=== PATIENT | male | born 1970 | race Caucasian/White ===

== ENCOUNTER 2021-10-27 08:30 | Day surgery (SDC) | payer BC ==
[2021-10-26 09:05] VITALS: BMI 31.1
[~2021-10-27 08:30] MED LIST: LACTATED RINGERS 1,000 ML IV SCH
[2021-10-27 09:43] VITALS: RESP 16; TEMP 96.5
[2021-10-27] MEDS ORDERED: PROPOFOL 10 MG/ML 20 ML VIAL IV ONE (10:22)
[2021-10-27] MEDS ORDERED: LIDOCAINE 2% INJ 20 MG/ML (2 ML VIAL) ONE (10:22)
--- NOTE | 2021-10-27 10:39 | P.PCN ---
Date of Procedure: 10/27/21 Procedure(s) Performed: BRIEF HISTORY: Patient is a 51-year-old pleasant white male scheduled for an elective colonoscopy as a part of screening for colorectal neoplasia. PROCEDURE PERFORMED: Colonoscopy. PREOPERATIVE DIAGNOSIS: Screening for colon cancer. IV sedation per Anesthesia. PROCEDURE: After informed consent was obtained, the patient, was brought into the endoscopy unit. IV sedation was administered by Anesthesia under continuous monitoring. Digital rectal examination was normal. Initially the Olympus CF-160 flexible video colonoscope was then inserted in the rectum, gradually advanced into the cecum without any difficulty. Careful examination was performed as the scope was gradually being withdrawn. Ileocecal valve and the appendiceal orifice were visualized and appeared normal. Prep was excellent. Mucosa of the cecum, ascending colon, transverse colon, descending colon, sigmoid colon, and rectum appeared normal. Sigmoid diverticulosis Retroflexion was performed in the rectum and no lesions were seen. The patient tolerated the procedure well. IMPRESSION: Normal-appearing colon from rectum to cecum with no evidence Scattered sigmoid diverticulosis. RECOMMENDATIONS: Findings of this examination were discussed with the patient as well as his family. He was advised to have a repeat screening colonoscopy in 10 years..
[2021-10-27 11:17] VITALS: BP 124/86; PULSE 58
== END 2021-10-27 11:30 | disposition home or self-care (01) ==
LOC: ORWHC2ENDO 08:30
PROVIDERS: ATTEND Internal Medicine Gastroenterology
DX: Z12.11 Encounter for screening for malignant neoplasm of colon (principal); K57.30 Diverticulosis of large intestine without perforation or abscess without bleeding; Z79.899 Other long term (current) drug therapy
CPT/HCPCS: 45378; J2704; J2001

== ENCOUNTER 2024-09-09 19:41 | Observation (INO) | payer BC, OTHER ==
[2024-09-09 19:46] LABS: Glucose,Whole Blood 115 mg/dL (70-110)
--- NOTE | 2024-09-09 21:09 | ED ---
Fall HPI - General Chief Complaint: Fall Stated Complaint: Syncope Time Seen by Provider: 09/09/24 20:59 Source: patient, family, EMS, RN notes reviewed Mode of arrival: EMS - History of Present Illness Initial Comments: 54-year-old male presenting for syncopal episode prior to arrival. States he was sitting in his lawn chair this evening when he began to feel lightheaded. He stood up to go inside of the house and had a syncopal episode. reports he was very sweaty. When he came to, he started to feel lightheaded again and syncopized a second time. Does not believe he hit his head. No injuries from the fall. Denies chest pain, shortness of breath, headache, abdominal pain. No significant past medical history. - Related Data Home Medications Medication Instructions Recorded Confirmed Cholecalciferol [Vitamin D3 (125 125 mcg PO DAILY 10/26/21 10/26/21 Mcg = 5000 Iu)] Fish Oil(Dose Unknown) 1 tab PO DAILY 10/26/21 10/26/21 Loratadine-Pseudoeph 10-240 mg 1 tab PO DAILY 10/26/21 10/26/21 [Claritin-D 24 Hour] Multivitamins, Thera [Multivitamin 1 tab PO DAILY 10/26/21 10/26/21 (formulary)] Singulair(Duse Unknown) 1 tab PO DAILY 10/26/21 10/26/21 Allergies Allergy/AdvReac Type Severity Reaction Status Date / Time No Known Allergies Allergy Verified 09/09/24 19:51 Review of Systems ROS Statement: Those systems with pertinent positive or pertinent negative responses have been documented in the HPI. ROS Other: All systems not noted in ROS Statement are negative. Past Medical History Past Medical History: Cancer Additional Past Medical History / Comment(s): seasonal allergies, skin cancer History of Any Multi-Drug Resistant Organisms: None Reported Additional Past Surgical History / Comment(s): cyst removed from rt arm, skin cancer removed from side of nose Past Anesthesia/Blood Transfusion Reactions: No Reported Reaction Past Psychological History: No Psychological Hx Reported Smoking Status: Current some day smoker Past Alcohol Use History: Occasional Past Drug Use History: None Reported - Past Family History Mother Family Medical History: No Reported History General Exam Limitations: no limitations General appearance: alert, in no apparent distress Head exam: Present: atraumatic, normocephalic, normal inspection Eye exam: Present: normal appearance, PERRL, EOMI. Absent: scleral icterus, conjunctival injection, periorbital swelling ENT exam: Present: normal exam, mucous membranes moist Neck exam: Present: normal inspection. Absent: tenderness, meningismus, lymphadenopathy Respiratory exam: Present: normal lung sounds bilaterally. Absent: respiratory distress, wheezes, rales, rhonchi, stridor Cardiovascular Exam: Present: regular rate, normal rhythm, normal heart sounds. Absent: systolic murmur, diastolic murmur, rubs, gallop, clicks GI/Abdominal exam: Present: soft, normal bowel sounds. Absent: distended, tenderness, guarding, rebound, rigid Neurological exam: Present: alert, oriented X3 Psychiatric exam: Present: normal affect, normal mood Skin exam: Present: warm, dry, intact, normal color. Absent: rash Course Vital Signs 09/09/24 09/09/24 19:46 21:45 Temperature 98.0 F Pulse Rate 74 74 Respiratory 17 16 Rate Blood Pressure 116/60 112/76 O2 Sat by Pulse 97 97 Oximetry Medical Decision Making - Medical Decision Making Was pt. sent in by a medical professional or institution (, PA, ST[employer]ER, urgent care, hospital, or retirement...) When possible be specific @ -No Did you speak to anyone other than the patient for history (EMS, parent, family, police, friend...)? What history was obtained from this source @ -No Did you review nursing and triage notes (agree or disagree)? Why? @ -I reviewed and agree with nursing and triage notes Were old charts reviewed (outside hosp., previous admission, EMS record, old EK G, old radiological studies, urgent care reports/EKG's, retirement records)? Report findings @ -No old charts were reviewed Differential Diagnosis (chest pain, altered mental status, abdominal pain women, abdominal pain men, vaginal bleeding, weakness, fever, dyspnea, syncope, headache, dizziness, GI bleed, back pain, seizure, CVA, palpatations, mental health, musculoskeletal)? @ -Differential Syncope: Valvular disease, hypertrophic cardiomyopathy, pulmonary embolism, tamponade, tachycardia, bradycardia, MD, hypovolemia, hemorrhage, dissection, anemia, intracranial hemorrhage, seizure, hypoglycemia, carbon monoxide poisoning, this is not meant to be an all-inclusive list. EKG interpreted by me (3pts min.). @ -As above X-rays interpreted by me (1pt min.). @ -None done CT interpreted by me (1pt min.). @ -None done U/S interpreted by me (1pt. min.). @ -None done What testing was considered but not performed or refused? (CT, X-rays, U/S, labs)? Why? @ -None What meds were considered but not given or refused? Why? @ -None Did you discuss the management of the patient with other professionals (professionals i.e. DrYobany, PA, STONE SANDBLASTER, lab, RT, psych nurse, social service technician, telecommunications clerk, teacher, program officer, case managers)? Give summary @ -I spoke with aissatou who accepts admission for syncope Was smoking cessation discussed for >3mins.? @ -No Was critical care preformed (if so, how long)? @ -No Were there social determinants of health that impacted care today? How? (Homelessness, low income, unemployed, alcoholism, drug addiction, transportation, low edu. Level, literacy, decrease access to med. care, senior care, rehab)? @ -No Was there de-escalation of care discussed even if they declined (Discuss DNR or withdrawal of care, Hospice)? DNR status @ -No What co-morbidities impacted this encounter? (DM, HTN, Smoking, COPD, CAD, Cancer, CVA, ARF, Chemo, Hep., AIDS, mental health diagnosis, sleep apnea, morbid obesity)? @ -None Was patient admitted / discharged? Hospital course, mention meds given and route, prescriptions, significant lab abnormalities, going to OR and other pertinent info. @ - admitted. 54-year-old male presenting for syncope prior to arrival. Denies chest pain, shortness of breath, abdominal pain, headache. Vital signs are within acceptable limits. Physical examination is unremarkable. EKG reveals normal sinus rhythm with inverted T waves in inferior leads. Lab work remarkable for leukocytosis of 18. Troponin undetectable. No lactic acidosis. Patient will be admitted to medicine for syncope. Case was discussed with my ED attending Dr. Anders. Undiagnosed new problem with uncertain prognosis? @ -No Drug Therapy requiring intensive monitoring for toxicity (Heparin, Nitro, Insulin, Cardizem)? @ -No Were any procedures done? @ -No Diagnosis/symptom? @ -Syncope Acute, or Chronic, or Acute on Chronic? @ -Acute Uncomplicated (without systemic symptoms) or Complicated (systemic symptoms)? @ -Complicated Side effects of treatment? @ -No Exacerbation, Progression, or Severe Exacerbation? @ -No Poses a threat to life or bodily function? How? (Chest pain, USA, MD, pneumonia, PE, COPD, DKA, ARF, appy, cholecystitis, CVA, Diverticulitis, Homicidal, Suicid al, threat to staff... and all critical care pts) @ -Possibly - Lab Data Result diagrams: 09/09/24 21:14 09/09/24 21:14 Lab Results 09/09/24 09/09/24 09/09/24 Range/Units 19:44 21:14 21:14 WBC 18.30 H (4.50-10.00) 10*3/uL RBC 4.74 (4.40-5.60) 10*6/uL Hgb 15.0 (13.0-17.0) g/dL Hct 44.2 (39.6-50.0) % MCV 93.2 (80.0-97.0) fL MCH 31.6 (27.0-32.0) pg MCHC 33.9 (32.0-37.0) g/dL Plt Count 238 (140-440) 10*3/uL MPV 10.9 (9.5-12.2) fL Immature Gran % (Auto) 0.5 % Neutrophils % 83.7 % Lymphocytes % 7.5 % Monocytes % 6.7 % Eosinophils % 1.1 % Basophils % 0.5 % Immature Gran # 0.09 H (0.00-0.04) 10*3/uL Neutrophils # 15.29 H (1.80-7.70) 10*3/uL Lymphocytes # 1.38 (0.90-5.00) 10*3/uL Monocytes # 1.23 H (0.20-1.00) 10*3/uL Eosinophils # 0.21 (0.04-0.35) 10*3/uL Basophils # 0.10 (0.00-0.10) 10*3/uL Sodium 139 (137-145) mmol/L Potassium 4.5 (3.5-5.1) mmol/L Chloride 108 H (98-107) mmol/L Carbon Dioxide 23 (22-30) mmol/L Anion Gap 8 mmol/L BUN 17 (9-20) mg/dL Creatinine 0.83 (0.66-1.25) mg/dL Est GFR (CKD-EPI)AfAm >90 (>60 ml/min/1.73 sqM) Est GFR (CKD-EPI)NonAf >90 (>60 ml/min/1.73 sqM) Glucose 113 H (74-99) mg/dL POC Glucose (mg/dL) 115 H (70-110) mg/dL POC Glu [employer] ID [facility] Plasma Lactic Acid Jeff (0.7-2.0) mmol/L Calcium 8.7 (8.4-10.2) mg/dL Total Bilirubin 0.5 (0.2-1.3) mg/dL AST 33 (17-59) U/L ALT 28 (4-49) U/L Alkaline Phosphatase 104 (38-126) U/L Troponin I (0.000-0.034) ng/mL Total Protein 6.7 (6.3-8.2) g/dL Albumin 4.0 (3.5-5.0) g/dL 09/09/24 09/09/24 Range/Units 21:14 21:14 WBC (4.50-10.00) 10*3/uL RBC (4.40-5.60) 10*6/uL Hgb (13.0-17.0) g/dL Hct (39.6-50.0) % MCV (80.0-97.0) fL MCH (27.0-32.0) pg MCHC (32.0-37.0) g/dL Plt Count (140-440) 10*3/uL MPV (9.5-12.2) fL Immature Gran % (Auto) % Neutrophils % % Lymphocytes % % Monocytes % % Eosinophils % % Basophils % % Immature Gran # (0.00-0.04) 10*3/uL Neutrophils # (1.80-7.70) 10*3/uL Lymphocytes # (0.90-5.00) 10*3/uL Monocytes # (0.20-1.00) 10*3/uL Eosinophils # (0.04-0.35) 10*3/uL Basophils # (0.00-0.10) 10*3/uL Sodium (137-145) mmol/L Potassium (3.5-5.1) mmol/L Chloride (98-107) mmol/L Carbon Dioxide (22-30) mmol/L Anion Gap mmol/L BUN (9-20) mg/dL Creatinine (0.66-1.25) mg/dL Est GFR (CKD-EPI)AfAm (>60 ml/min/1.73 sqM) Est GFR (CKD-EPI)NonAf (>60 ml/min/1.73 sqM) Glucose (74-99) mg/dL POC Glucose (mg/dL) (70-110) mg/dL POC Glu [employer] ID Plasma Lactic Acid Jeff 1.2 (0.7-2.0) mmol/L Calcium (8.4-10.2) mg/dL Total Bilirubin (0.2-1.3) mg/dL AST (17-59) U/L ALT (4-49) U/L Alkaline Phosphatase (38-126) U/L Troponin I <0.012 (0.000-0.034) ng/mL Total Protein (6.3-8.2) g/dL Albumin (3.5-5.0) g/dL - EKG Data -: EKG Interpreted by Me EKG Comments: EKG reveals normal sinus rhythm with inverted T waves in inferior leads. Ventricular rate 66 bpm, parable 157, QRS duration 96, QT/QTc 383/397 Disposition Clinical Impression: Syncope Disposition: ADMITTED IP TO THIS HOSP Referrals: Lucio Hutchinson DO [Primary Care Provider] - 1-2 days Time of Disposition: 22:42
[2024-09-09 21:28] LABS: Basophils # (A) 0.10 10*3/uL (0.00-0.10); Basophils % (A) 0.5 %; Eosinophils # (A) 0.21 10*3/uL (0.04-0.35); Eosinophils % (A) 1.1 %; HCT 44.2 % (39.6-50.0); HGB 15.0 g/dL (13.0-17.0); Lymphocytes # (A) 1.38 10*3/uL (0.90-5.00); Lymphocytes % (A) 7.5 %; MCH 31.6 pg (27.0-32.0); MCHC 33.9 g/dL (32.0-37.0); MCV 93.2 fL (80.0-97.0); Monocytes # (A) 1.23 10*3/uL (0.20-1.00); Monocytes % (A) 6.7 %; Neutrophils # (A) 15.29 10*3/uL (1.80-7.70); Neutrophils % (A) 83.7 %; Platelet Count 238 10*3/uL (140-440); RBC 4.74 10*6/uL (4.40-5.60); RDW 12.5 % (11.5-14.5); WBC 18.30 10*3/uL (4.50-10.00)
[2024-09-09 21:41] LABS: ALT 28 U/L (4-49); AST 33 U/L (17-59); African American GFR (CKD) >90 (>60 ml/min/1.73 sqM); Albumin 4.0 g/dL (3.5-5.0); Alkaline Phosphatase 104 U/L (38-126); Anion Gap 8 mmol/L; Blood Urea Nitrogen 17 mg/dL (9-20); Calcium 8.7 mg/dL (8.4-10.2); Carbon Dioxide 23 mmol/L (22-30); Chloride 108 mmol/L (98-107); Glucose 113 mg/dL (74-99); Non-African American GFR(CKD) >90 (>60 ml/min/1.73 sqM); Potassium 4.5 mmol/L (3.5-5.1); Sodium 139 mmol/L (137-145); Total Protein 6.7 g/dL (6.3-8.2)
[2024-09-09] MEDS: SODIUM CHLORIDE 0.9% 1,000 ML IV STA (21:44)
[2024-09-09] MEDS ORDERED: ONDANSETRON 4 MG/2 ML VIAL IVP PRN (23:11)
[2024-09-09] MEDS ORDERED: NALOXONE 0.4 MG/ML 1 ML VIAL IV PRN (23:11)
[2024-09-09] MEDS ORDERED: ACETAMINOPHEN TAB 325 MG TAB PO PRN (23:11)
[2024-09-09 23:36] LABS: INR 0.9 (<1.2); Partial Thromboplastin Time 22.6 sec (22.0-30.0); Prothrombin Time 10.2 sec (10.0-12.5)
[2024-09-10 01:10] VITALS: TEMP 97.7
--- NOTE | 2024-09-10 03:31 | P.HPIM ---
History of Present Illness H&P Date: 09/09/24 Chief Complaint: Patient reports passing out twice yesterday afternoon 54 year old male with no significant past medical history Patient experienced two episodes of syncope yesterday afternoon. The first episode occurred after patient had eaten and got up from a chair outside. Patient felt lightheaded and passed out and fell to the ground. Patient had consumed a beer approximately 30 minutes prior and had just finished smoking a cigar. Patient's called 911. Patient regained consciousness and initially felt fine, though described feeling somewhat cloudy mentally. A second episode occurred within 3 minutes, during which patient was unresponsive for a longer period. EMS arrived and patient walked to the ambulance. EKG was performed showing "some anomalies" but nothing significant. Patient experienced another episode of lightheadedness while with EMS, prompting transport to the hospital. Patient denies heart racing, skipping beats, bleeding, recent travel, blood clots, or heart disease. Patient denies any seizure activity, loss of bladder or bowel control, or shaking/convulsing during the episodes. denies any new focal neuro deficits Patient reports no medical issues or medical history. Patient smokes 1-2 cigars daily, typically [employer]. Patient consumed a beer at lunch and another beer later in the day. Patient denies street drug use. Review of systems All systems reviewed with pertinent positive negatives as per HPI ENT: Patient reports ears feeling plugged upon waking for the last couple of days, attributed to wax buildup. Denies vision or hearing changes otherwise. Neurological: Denies numbness or new weakness. Patient reports normal strength. Cardiovascular: Denies heart racing or skipping beats. Gastrointestinal: Denies bleeding. Musculoskeletal: Denies leg swelling. on exam Constitutional: No acute distress, conversant, pleasant Eyes: Anicteric sclerae, moist conjunctiva, Pupils equal round reactive to light ENMT: NC/AT Oropharynx clear, no erythema, or exudates Neck: Supple, no masses, or JVD No carotid bruits No thyromegaly Lungs: Clear to auscultation Clear to percussion Normal respiratory effort, no accessory muscle use Cardiovascular: Heart regular in rate and rhythm, No murmurs, gallops, or rubs No peripheral edema Abdominal: Soft Nontender, no guarding, rebound or rigidity Abdomen moving with respiration Extremities: No digital cyanosis No clubbing Pedal pulses intact and symmetrical Radial pulses intact and symmetrical No calf tenderness Psychiatric: Alert and oriented to person, place and time Appropriate affect fair judgement Neuro Muscles Strength 5/5 in all 4 extremities Sensation to light touch grossly present throughout Cranial nerves II-XII grossly intact Past Medical History Past Medical History: Cancer Additional Past Medical History / Comment(s): seasonal allergies, skin cancer History of Any Multi-Drug Resistant Organisms: None Reported Additional Past Surgical History / Comment(s): cyst removed from rt arm, skin cancer removed from side of nose Past Anesthesia/Blood Transfusion Reactions: No Reported Reaction Past Psychological History: No Psychological Hx Reported Smoking Status: Current some day smoker Past Alcohol Use History: Occasional Past Drug Use History: None Reported - Past Family History Mother Family Medical History: No Reported History Medications and Allergies Home Medications Medication Instructions Recorded Confirmed Type Cholecalciferol [Vitamin D3 (125 125 mcg PO DAILY 10/26/21 10/26/21 History Mcg = 5000 Iu)] Fish Oil(Dose Unknown) 1 tab PO DAILY 10/26/21 10/26/21 History Loratadine-Pseudoeph 10-240 mg 1 tab PO DAILY 10/26/21 10/26/21 History [Claritin-D 24 Hour] Multivitamins, Thera [Multivitamin 1 tab PO DAILY 10/26/21 10/26/21 History (formulary)] Singulair(Duse Unknown) 1 tab PO DAILY 10/26/21 10/26/21 History Allergies Allergy/AdvReac Type Severity Reaction Status Date / Time No Known Allergies Allergy Verified 09/09/24 19:51 Physical Exam Vitals: Vital Signs Temp Pulse Resp BP Pulse Ox 09/10/24 01:10 97.7 F 57 L 17 108/62 96 09/09/24 21:45 74 16 112/76 97 09/09/24 19:46 98.0 F 74 17 116/60 97 Intake and Output 09/09/24 09/09/24 09/10/24 14:59 22:59 06:59 Other: Weight 106.594 kg Results CBC & Chem 7: 09/09/24 21:14 09/09/24 21:14 Labs: Abnormal Lab Results - Last 24 Hours (Table) 09/09/24 09/09/24 09/09/24 Range/Units 19:44 21:14 21:14 WBC 18.30 H (4.50-10.00) 10*3/uL Immature Gran # 0.09 H (0.00-0.04) 10*3/uL Neutrophils # 15.29 H (1.80-7.70) 10*3/uL Monocytes # 1.23 H (0.20-1.00) 10*3/uL Chloride 108 H (98-107) mmol/L Glucose 113 H (74-99) mg/dL POC Glucose (mg/dL) 115 H (70-110) mg/dL Assessment and Plan Assessment: Patient presents with syncope of unclear etiology requiring rule out of cardiac and neurologic causes. Two episodes of loss of consciousness occurred yesterday afternoon, with the second episode being more prolonged. Patient had no prior history of similar episodes and reports no significant medical history. syncope suspected to be secondary to dehydration , resulting in orthostatic hypotension when getting off a chair check orthostatic vitals IVF hydration with normal saline neuro check s director of cardiac rehabilitation re evaluate after IVF hydration EKG no acute ST changes Blood work review Hemoglobin 15 unremarkable D-dimer unremarkable 0.17 INR 0.9 unremarkable Renal function unremarkable sodium 139 potassium 4.5 bicarb 23 BUN 17 creatinine 0.8 blood sugar 113 Lactic acid 1.2 Liver enzymes unremarkable Troponins negative Full code DVT prophylaxis low risk patient will be maintained on SCDs
[2024-09-10] MEDS: SODIUM CHLORIDE 0.9% 1,000 ML IV SCH (05:21)
[2024-09-10 07:50] LABS: Basophils # (A) 0.06 10*3/uL (0.00-0.10); Basophils % (A) 0.5 %; Eosinophils # (A) 0.22 10*3/uL (0.04-0.35); Eosinophils % (A) 1.7 %; HCT 42.4 % (39.6-50.0); HGB 14.3 g/dL (13.0-17.0); Lymphocytes # (A) 1.64 10*3/uL (0.90-5.00); Lymphocytes % (A) 13.0 %; MCH 30.8 pg (27.0-32.0); MCHC 33.7 g/dL (32.0-37.0); MCV 91.4 fL (80.0-97.0); Monocytes # (A) 1.13 10*3/uL (0.20-1.00); Monocytes % (A) 9.0 %; Neutrophils # (A) 9.51 10*3/uL (1.80-7.70); Neutrophils % (A) 75.3 %; Platelet Count 214 10*3/uL (140-440); RBC 4.64 10*6/uL (4.40-5.60); RDW 12.8 % (11.5-14.5); WBC 12.62 10*3/uL (4.50-10.00)
[2024-09-10 08:12] LABS: African American GFR (CKD) >90 (>60 ml/min/1.73 sqM); Anion Gap 6 mmol/L; Blood Urea Nitrogen 12 mg/dL (9-20); Calcium 8.9 mg/dL (8.4-10.2); Carbon Dioxide 25 mmol/L (22-30); Chloride 110 mmol/L (98-107); Glucose 94 mg/dL (74-99); Magnesium 1.8 mg/dL (1.6-2.3); Non-African American GFR(CKD) >90 (>60 ml/min/1.73 sqM); Potassium 4.2 mmol/L (3.5-5.1); Sodium 141 mmol/L (137-145)
--- NOTE | 2024-09-10 08:27 | US ---
EXAMINATION TYPE: US carotid duplex BILAT DATE OF EXAM: 09/10/2024 COMPARISON: NONE CLINICAL INDICATION: Male, 54 years old with history of syncope; TECHNIQUE: Grayscale, color Doppler and spectral Doppler evaluation of the bilateral carotid systems and vertebral arteries. Indirect Doppler criteria was utilized. FINDINGS: Certified Nuclear Medicine Technologist notes: Exam done portable EXAM MEASUREMENTS: RIGHT: Peak Systolic Velocity (PSV) cm/sec ----- Right CCA: 79.8 ----- Right ICA: 82.0 ----- Right ECA: 115.7 ICA/CCA ratio: 1.0 RIGHT: End Diastole cm/sec ----- Right CCA: 21.5 ----- Right ICA: 34.7 ----- Right ECA: 13.9 LEFT: Peak Systolic Velocity (PSV) cm/sec ----- Left CCA: 92.7 ----- Left ICA: 82.3 ----- Left ECA: 106.9 ICA/CCA ratio: 0.9 LEFT: End Diastole cm/sec ----- Left CCA: 22.8 ----- Left ICA: 34.4 ----- Left ECA: 12.4 VERTEBRALS (direction of flow): Right Vertebral: Antegrade Left Vertebral: Antegrade Rhythm: Normal IMPRESSION: No hemodynamically significant internal carotid artery stenosis on either side. Criteria for Assigning % of Stenosis / Diameter reduction (Estimation based on the indirect measurements of the internal carotid artery velocities (ICA PSV). 1. Normal (no stenosis)=ICA PSV < 180 cm/s: ratio < 2.0: ICA EDV<40 cm/s. 2. Less than 50% stenosis=ICA PSV < 180 cm/s: ratio < 2.0: ICA EDV<40 cm/s. 3. 50 to 69% stenosis=ICA PSV of 180 to 230 cm/s: ration 2.0 ? 4.0: ICA EDV 40-100 cm/s. PSV 125-180 cm/sec and ICA/CCA PSV Ratio ? 2.0 is also consistent with 50-69% stenosis 4. Greater than 70% stenosis to near occlusion= ICA PSV > 230 cm/s: ratio > 4.0: ICA EDV > 100 cm/s. 5. Near occlusion= ICA PSV velocities may be low or undetectable: variable ratio and ICA EDV. 6. Total occlusion=unable to detect flow. [facility], , 09/10/2024 8:24 AM
[2024-09-10 08:50] VITALS: BP 107/71; PULSE 64; RESP 18
--- NOTE | 2024-09-10 11:31 | P.DS ---
Providers Date of admission: 09/09/24 23:12 Expected date of discharge: 09/10/24 Attending physician: Joe Teague MD Primary care physician: [facility] Course: Discharge Diagnosis: Syncope Hospital Course: The patient is a 54 year old male with no significant past medical history who experienced two episodes of syncope yesterday afternoon. Patient denies taking any medications at home as well as any history of previous syncope. Patient also denies any headache, changes in vision, or current lightheadedness or dizziness. In the ED, labs were drawn which were unremarkable except for an elevated WBC of 18.30. EKG was unremarkable and did not show any evidence of arrhythmia. The patient was started on IV fluids The patient was admitted and orthostatic vitals were evaluated which showed no evidence of orthostasis. A carotid duplex ultrasound was performed which showed no evidence of carotid artery stenosis bilaterally. Labs were redrawn the day after admission which were also unremarkable, WBC: 12.62, NA: 131, K: 4.2, Ca: 8.9, M.8 Patient seen and examined at bedside. Vital signs reviewed and stable. Physical examination: Vital signs reviewed General: non toxic, no distress, appears at stated age, normal weight Derm: no unusual rashes/lesions, warm Head: atraumatic, normocephalic, symmetric Eyes: EOMI, anicteric sclera, pupils equal round reactive to light ENT: Nose and ears atraumatic Neck: No cervical lymphadenopathy, trachea midline, supple Mouth: no lip lesion, mucus membranes moist Cardiovascular: S1S2 reg, no murmur, positive dorsalis pedis pulse bilateral, no edema Lungs: CTA bilateral, no rhonchi, no rales, no accessory muscle use Abdominal: soft, nontender to palpation, no guarding Ext: muscle strength 5 out of 5 in all 4 extremities grossly, no gross muscle atrophy Neuro: CN II-XI grossly intact, no gross focal neuro deficits Psych: Alert, oriented to person, place, and time The patient's syncope is likely due to dehydration while he was working outside Patient was recommended to follow-up with PCP within 1 week. The patient was also counseled to stay hydrated when he is working outside. He was also encouraged to drink Pedialyte. A total of greater than 30 minutes of time were spent preparing this complex discharge summary. Patient was discharged on 09/10/2024. Tanvir Villalba MD PGY-1 TY Dictation was produced using [employer] dictation software. please excuse any grammatical, word or spelling errors. I saw and evaluated the patient during the torres and critical portions of this encounter, and discussed the case in detail with the resident author of this note, I agree with the Assessment and Plan, and my changes, if any, are highlighted in blue. Plan - Discharge Summary New Discharge Prescriptions: Continue Montelukast [Singulair] 10 mg PO HS PRN PRN Reason: Allergy Symptoms Loratadine [Claritin] 10 mg PO DAILY Discharge Medication List Loratadine [Claritin] 10 mg PO DAILY 09/10/24 [History] Montelukast [Singulair] 10 mg PO HS PRN 09/10/24 [History] Follow up Appointment(s)/Referral(s): Lucio Hutchinson DO [Primary Care Provider] - 1-2 days Patient Instructions/Handouts: Dehydration (GEN), Syncope (GEN) Activity/Diet/Wound Care/Special Instructions: Recommend staying hydrated while working outside and encourage drinking pedialyte to replenish electrolytes. Also recommend following up with PCP within a week. Discharge Disposition: HOME SELF-CARE
== END 2024-09-10 11:23 | disposition home or self-care (01) ==
LOC: EC 19:41 → 6NMEDSUR 23:12 → 1SOBS 09-10 05:14
PROVIDERS: ADMIT Internal Medicine; ATTEND Internal Medicine
DX: R55 Syncope and collapse (principal); F17.290 Nicotine dependence, other tobacco product, uncomplicated; Z85.828 Personal history of other malignant neoplasm of skin
CPT/HCPCS: 99285; 36415; 93005; 85379; 80053; 80048; 83605; 83735; 84484 ×2; 85025 ×2; 85610; 85730; 93880; G0378 ×3